=== PATIENT | male | born 1955 | race Caucasian/White ===

== ENCOUNTER 2020-06-09 13:09 | Emergency (ER) | payer MEDICARE, BC ==
[2020-06-09] MEDS ORDERED: diphenhydrAMINE 50 MG/ML 1 ML VIAL IVP STA (13:15)
--- NOTE | 2020-06-09 13:21 | ED ---
General Adult HPI - General Stated complaint: Allergic Reaction Time Seen by Provider: 06/09/20 13:09 Source: patient, EMS, RN notes reviewed, old records reviewed - History of Present Illness Initial comments: This is a 65-year-old male who presents emergency Department with a past medical history significant for anaphylactic reaction to bee stings. Patient states she has diabetic head today and a couple minutes after that he started feeling little bit lightheaded mildly short of breath and felt like there was a lump in his throat. Patient went to a doctor's office in town they gave him some Benadryl. EMS was contacted when they arrived the patient's blood pressure as well as I gave the patient epinephrine subcu as well as steroids. After about 10:15 more minutes his pressure still remained low so I gave him another shot of epinephrine. Currently the patient states she feels considerably better he is no longer short of breath and denies any feeling of a lump in his throat. Patient is diffusely erythematous. Patient states he does not own an EpiPen. - Related Data Previous Rx's Medication Instructions Recorded EPINEPHrine (Auto Inject) [Epipen] 0.3 mg IM ONCE PRN #2 syringe 06/09/20 predniSONE [Deltasone] 40 mg PO DAILY #8 tab 06/09/20 Allergies Allergy/AdvReac Type Severity Reaction Status Date / Time bee venom protein (honey bee) Allergy Severe Anaphylaxis Verified 06/09/20 14:04 Review of Systems ROS Statement: Those systems with pertinent positive or pertinent negative responses have been documented in the HPI. ROS Other: All systems not noted in ROS Statement are negative. General Exam - General Exam Comments Initial Comments: GENERAL: Patient is well-developed and well-nourished. Patient is nontoxic and well- hydrated and is in mild distress. ENT: Neck is soft and supple. No significant lymphadenopathy is noted. Oropharynx is clear. Moist mucous membranes. Neck has full range of motion without eliciting any pain. EYES: The sclera were anicteric and conjunctiva were pink and moist. Extraocular movements were intact and pupils were equal round and reactive to light. Eyelids were unremarkable. PULMONARY: Unlabored respirations. Good breath sounds bilaterally. No audible rales rhonchi or wheezing was noted. CARDIOVASCULAR: There is a regular rate and rhythm without any murmurs gallops or rubs. ABDOMEN: Soft and nontender with normal bowel sounds. SKIN: Arms and legs are all erythematous NEUROLOGIC: Patient is alert and oriented x3. Cranial nerves II through XII are grossly intact. Motor and sensory are also intact. Normal speech, volume and content. Symmetrical smile. MUSCULOSKELETAL: Normal extremities with adequate strength and full range of motion. LYMPHATICS: No significant lymphadenopathy is noted PSYCHIATRIC: Normal psychiatric evaluation. Course Vital Signs 06/09/20 06/09/20 13:19 14:05 Temperature 97.3 F L Pulse Rate 62 62 Respiratory 18 20 Rate Blood Pressure 114/92 140/70 O2 Sat by Pulse 100 98 Oximetry Medical Decision Making - Medical Decision Making Patient was resting comfortably. I reevaluated after he was here for 2 hours he felt completely back to his baseline except a little tired secondary to the Benadryl. Critical Care Time Critical Care Time: Yes Total Critical Care Time: 35 Disposition Clinical Impression: Anaphylaxis Disposition: HOME SELF-CARE Condition: Good Instructions (If sedation given, give patient instructions): Anaphylaxis (ED) Prescriptions: predniSONE [Deltasone] 40 mg PO DAILY #8 tab EPINEPHrine (Auto Inject) [Epipen] 0.3 mg IM ONCE PRN #2 syringe PRN Reason: Difficulty breathing Is patient prescribed a controlled substance at d/c from ED?: No Referrals: Manisha Wooten MD [Primary Care Provider] - 1-2 days Time of Disposition: 15:32
[2020-06-09 15:43] VITALS: BP 139/73; PULSE 58
[2020-06-09 16:19] VITALS: RESP 19; TEMP 98.3
== END 2020-06-09 15:45 | disposition home or self-care (01) ==
LOC: EC 13:09
DX: T78.2XXA Anaphylactic shock, unspecified, initial encounter (principal); Z91.030 Bee allergy status
CPT/HCPCS: 99285; 96374; J1200